=== PATIENT | male | born 1940 | race Caucasian/White ===

== ENCOUNTER 2021-07-09 15:20 | Outpatient (CLI) | payer MEDICARE | END 2021-07-09 15:21 | disposition home or self-care (01) | LOC: CSHRAD 15:20 | PROVIDERS: ATTEND Internal Medicine | DX: M79.641 Pain in right hand (principal); M79.642 Pain in left hand; M19.041 Primary osteoarthritis, right hand; M19.042 Primary osteoarthritis, left hand ==